=== PATIENT | male | born 2000 | race Asian ===

== ENCOUNTER 2024-10-18 03:54 | Emergency (ER) | payer OTHER, SELFPAY ==
--- NOTE | ~2024-10-18 | XR_ITS ---
CLINICAL HISTORY: injury 2 view right forearm Comparison: None provided Findings: No fractures or dislocations. No joint effusion. No significant arthritic change. No radiopaque foreign body. IMPRESSION: 1. Normal right forearm This document has been electronically signed by: Geovanni Blackman MD on 10/18/2024 05:26:32
[2024-10-18 03:59] VITALS: BP 137/93; BP 162/102; PULSE 84; PULSE 98; RESP 17; TEMP 36.7; O2SAT 100; O2SAT 98; BMI 31.2
--- NOTE | 2024-10-18 04:06 | ED_ITS ---
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 Pain and swelling over the right forearm. Related Data Allergies Allergy/AdvReac Type Severity Reaction Status Date / Time No Known Allergies Allergy Verified 10/18/24 04:04 Review of Systems Constitutional: Constitutional: Reports as per [facility] Social History Social History Smoked in Last 30 Days: No Use of substances other than those prescribed or required for medical reasons: No Advance Directives: No Advance Directives Information Provided: Yes Physical Exam Vital Signs: Vital Signs: Last Vital Signs Temp 98.1 F 10/18/24 03:59 Pulse 84 10/18/24 03:59 Resp 17 10/18/24 03:59 BP 137/93 H 10/18/24 03:59 Pulse Ox 100 10/18/24 03:59 O2 Del Method Room Air 10/18/24 03:59 BMI result Body Mass Index 31.2 Const: Other: * Gen: ?Overall well-appearing patient * MSK: Full range of motion right elbow, right shoulder, no deformity to the wrist, distal pulses intact, radial ulnar medial motor and sensory present, he does have swelling of the mid forearm without obvious deformity * Skin: Warm, dry, intact, slight hematoma over the right forearm * Neuro: ?Alert and oriented x3, moving upper and lower extremities symmetrically, no obvious facial asymmetry noted Medications Administered Discontinued Medications Generic Name Dose Route Start Last Admin Trade Name Freq PRN Reason Stop Dose Admin Ibuprofen 400 mg 10/18/24 04:04 10/18/24 04:10 Ibuprofen 400 Mg Tablet PO 10/18/24 04:05 400 mg ONCE ONE Administration Medical Decision Making Medical Decision Making [facility] Narrative: Presenting with likely soft tissue injury we will obtain x-rays, 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 this is right-hand, anticipate that he will be out of work has come until improvement in his symptoms Differential Diagnosis Differential Diagnoses: The differential diagnosis associated with the presentation includes Fracture, muscle injury, ligament injury, dislocation Discharge Plan Discharge Clinical Impression: Contusion of forearm, right Patient Disposition: Home, Self-Care Additional Instructions: I recommend ibuprofen 400 mg every 6 hours around the clock for the next 2 days Ice the area to 3 times a day with a bag of ice that encompasses your whole forearm, gentle [id number] exercises of the elbow and wrist You will develop more bruising and probably more swelling tomorrow Not cleared for full duty until you are cleared by your provider to perform any physical activity or handle a weapon X-ray without any fractures, this is muscle contusion/crush injury Referrals: Raymundo Muse MD [Primary Care Provider, Internal Medicine] Clinical Impression: Contusion of forearm, right Print Language: Occitan
--- OUTSIDE RECORDS SUMMARY | 2024-10-18 04:30 | XMS_ITS | Clinical Summary ---
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 Elevated blood pressure reading 02/28/2017 Overview (07/29/2018): To seen cardiology; seen 04/18: getting labs and following, f/u in 3 mos. ECHO 07/17: normal. Assessment & Plan (11/08/2021 11:00 AM EDT): Has seen cardiology in the past; needs to f/u with them. Assessment & Plan (03/17/2019 3:30 PM EST): Improved BP today Immunizations Immunization Administration Dates Next Due DTaP 06/01/2006, 4,2002,09/16,2002 HPV Vaccine 9 Valent 02/26/2017,11/10/2014,09/30 Hep A, ped/adol 11/08/2006,11/04/2005 Hep B, ped/adol 10/15/2008, 9,04/16/2008,05/17,2002,2002 Hib (PRP-T) 08/16/2003, 3,2002,07/27 IPV 06/01/2006, 4,2002,07/27 Influenza, injectable, quadr ivalent, preservative free 03/10/2018 MMR 06/01/2006,05/17/2003 Meningococcal Conj (Menactra) MCV4P 12/18/2018,0 05/19/2013 Pneumococcal Conjugate 13-Valent 006,2002,2002,07/27 Tdap 05/19/2013 Varicella 11/08/2006,05/17/2003 Family History Medical History Relation Name Comments No Known Problems Father No Known Problems Maternal Grandfather No Known Problems Maternal Grandmother No Known Problems Mother No Known Problems Paternal Grandfather No Known Problems Paternal Grandmother Relation Name Status Comments Father Healthy Maternal Grandfather Healthy Maternal Grandmother Healthy Mother Healthy Paternal Grandfather Healthy Paternal Grandmother Healthy Social History Tobacco Use Types Packs/Day Years Used Date Smoking Tobacco: Never Smokeless Tobacco: Never Alcohol Use Standard Drinks/Week Comments No 0 (1 standard drink = 0.6 oz pur e alcohol) Hunger/Food Answer Date Recorded In the last 12 months, did y ou or your family ever eat less than you felt you should because there wasn't enough money for food? No 03/17/2019 Stable Housing Answer Date Recorded Are you worried that in the next 2 months you may not have stable housing? No 03/17/2019 Transportation Concerns Answer Date Rec orded In the last 12 months, have you or your family ever had to go without healthcare because you didn't have a way to get there? No 03/17/2019 Hazards in Home Answer Date Recorded Think about the place you li ve. Do you have problems with any of the following? Pests (mice or roaches), mold, no/not working smoke detectors, water leaks, no window guards. No 2018 Financing Utilities Answer Date Recorde d In the last 12 months, has t he electric, gas, oil, or water company threatened to shut off your services in your home? No 03/17/2019 Safety at Home Answer Date Recorded Are you or your family worried about feeling saf e in your home? No 03/17/2019 Outside Support Answer Date Recorded Do you feel that you need mo re support from other people or programs to help you care for yourself or your family? No 03/17/2019 Understanding Health Concerns Answer Da te Recorded Do you need help understandi ng your or your child's healthcare needs (diagnosis, medications, plan, etc.)? No 03/17/2019 Financing Health Concerns Answer Date R ecorded In the last 12 months, was t here a time when your child needed to see a doctor or get medications or supplies but could not because of cost? No 03/17/2019 Missing School or Work Answer Date Jonathan rded Did you or your child miss s chool or work because of a health problem that could have been avoided? No 03/17/2019 Sex and Gender Information Value Date Recorded Sex Assigned at Not on file Legal Sex Male 6:20 PM EDT Gender Identity Not on file Sexual Orientation Not on file Last Filed Vital Signs Vital Sign Reading Time Taken Comments Blood Pressure 140/90 11/08/2021 10:39 AM EDT Pulse - - Temperature 37.2 C (99 F) 09/03/2018 8:05 PM EDT Respiratory Rate - - Oxygen Saturation - - Inhaled Oxygen Concentration - - Weight 105 kg (231 lb 4 oz) 11/08/2021 10:39 AM EDT Height 182.9 cm (6') 11/08/2021 10:39 AM EDT Body Mass Index 31.36 11/08/2021 10:39 AM EDT Plan of Treatment Health Maintenance Due Date Last Done Comments Men B Vaccine (1 of 2 - Standard) 2018 COVID-19 Vaccine (3 - 2023-2 5 season) 2023 08/04/2020, 07/13/2020 Influenza Vaccines (#1) 2024 01/17/20, 12/15/2019, 01/14/2019, Additional history exists DTaP,Tdap,and Td Vaccines (8 - Td or Tdap) 05/08/2033 05/08/2023, 05/19/2013, 06/01/2006, Additional history exists HIB Vaccines Completed 08/16/2003, 10/29, 2002, Additional history exists Pneumococcal Vaccine Completed 11/04/2005, 2002, 2002, Additional history exists IPV Vaccines Completed 06/01/2006, 05/01, 2002, Additional history exists MMR Vaccines Completed 06/01/2006, 05/17/2003 Hepatitis A Vaccines Completed 11/08/2006, 11/05/19 06 Varicella Vaccines Completed 11/08/2006, 05/17/2003 Hepatitis B Vaccines Completed 10/15/2008, 05/21/2008, 04/16/2008, Additional history exists HPV Vaccines Completed 02/26/2017, 10/29, 09/30/2014 Meningococcal Vaccine Completed 12/18/2018, [address] Insurance [place] [address] [address] NON [facility]
[2024-10-18 05:38] VITALS: BP 137/93; PULSE 84; RESP 17; TEMP 36.7; O2SAT 100
== END 2024-10-18 05:38 | disposition home or self-care (01) ==
PROVIDERS: Emergency Provider Emergency Medicine; PCP Internal Medicine
DX: S50.11XA Contusion of right forearm, initial encounter (principal); W20.8XXA Other cause of strike by thrown, projected or falling object, initial encounter; M79.631 Pain in right forearm; Y93.89 Activity, other specified; Y92.143 Cell of prison as the place of occurrence of the external cause; Y99.0 Civilian activity done for income or pay
CPT/HCPCS: 73090; 99283; 99284

== ENCOUNTER → 2024-10-18 04:04 | Outpatient (BNV) | payer OTHER, SELFPAY | PROVIDERS: Emergency Provider Emergency Medicine; PCP Internal Medicine; Visit Provider Specialist | DX: S59.911A Unspecified injury of right forearm, initial encounter (principal) | CPT/HCPCS: 73090 ==

== ENCOUNTER → 2024-10-19 09:49 | Outpatient (BNVA) | payer OTHER, SELFPAY | PROVIDERS: PCP Internal Medicine; Visit Provider Physician Assistant Medical | DX: S57.81XA Crushing injury of right forearm, initial encounter (principal); W23.1XXA Caught, crushed, jammed, or pinched between stationary objects, initial encounter; Y35.891A Legal intervention involving other specified means, law enforcement official injured, initial encounter; Z02.79 Encounter for issue of other medical certificate | CPT/HCPCS: 99202 ==